=== PATIENT | female | born 1985 | race Caucasian/White ===

== ENCOUNTER 2017-09-29 08:29 | Emergency (ER) | payer MEDICAID ==
[~2017-09-29] VITALS: Ht 167.6 cm; Wt 52.6 kg
[~2017-09-29 08:29] MED LIST: ANAPROX DS550 MG PO; AVPAK AZITHROM250 M1 PO; CLEOCIN HCL150 MG PO; CYCLOBENZAPRINE10 MG PO; Motrin,Rufen800 MG PO; ZOFRAN ODT4 MG SL; [UNRECOGNIZED DRUG - OTHER] PO
[2017-09-29] MEDS ORDERED: GOOD SENSE ALLE10 M2 PO (08:39)
[2017-09-29] MEDS ORDERED: PROAIR HFA8.5 GM INH (08:39)
[2017-09-29] MEDS ORDERED: AVPAK AZITHROM250 M1 PO (08:39)
[2017-09-29 08:49] LABS: BASO % 0.5 % (0.0-1.0); EOS % 0.6 % (1.0-4.0); HEMATOCRIT 45.6 % (37.0-47.0); HEMOGLOBIN 15.6 g/dl (12.0-16.0); LYMPH # 0.9 10*3/uL (1.3-4.4); LYMPH % 14.6 % (27.0-41.0); MEAN CELL VOLUME 92.1 fl (81.0-99.0); MEAN CORPUSCULAR HGB 31.5 pg (27.0-31.0); MEAN CORPUSCULAR HGB CONC 34.2 g/dl (33.0-37.0); MEAN PLATELET VOLUME 10.3 fl (9.6-12.3); MONO # 0.5 10*3/uL (0.1-1.0); MONO % 8.6 % (3.0-9.0); NEUT # 4.7 10*3/uL (2.3-7.9); NEUT % 75.4 % (47.0-73.0); PLATELET COUNT AUTOMATED 160 10*3/uL (130-400); RED BLOOD COUNT 4.95 10*6/uL (4.10-5.10); RED CELL DISTRI WIDTH 12.9 % (0-14.5); WHITE BLOOD COUNT 6.3 10*3/uL (4.8-10.8)
[2017-09-29 09:03] LABS: ALBUMIN 4.2 gm/dl (3.1-4.5); ALKALINE PHOSPHATASE 101 U/L (45-117); BUN 12 mg/dl (7-24); CHLORIDE 103 mmol/L (98-107); CREATININE 0.74 mg/dL (0.55-1.02); LIPASE 139 U/L (73-393); POTASSIUM 3.3 mmol/L (3.5-5.1); SGOT/AST 30 IU/L (3-35); SGPT/ALT 30 U/L (12-78); SODIUM 138 mmol/L (136-145); TOTAL PROTEIN 7.7 gm/dL (6.4-8.2)
[2017-09-29 09:15] LABS: BILIRUBIN 1+ (NEGATIVE); BLOOD TRACE-INTACT (NEGATIVE); CLARITY SL CLOUDY (CLEAR); COLOR YELLOW (YELLOW); GLUCOSE NEGATIVE (NEGATIVE); KETONE 1+ (NEGATIVE); LEUKO ESTERASE NEGATIVE (NEGATIVE); NITRITE NEGATIVE (NEGATIVE); PH 6.5 (5.0-9.0); UROBILINOGEN 0.2 E.U./dl (0.2-1.0)
[2017-09-29 09:25] LABS: BACTERIA TRACE; EPITHELIAL CELLS 21-30
[2017-09-29] MEDS ORDERED: ZOFRAN ODT4 MG SL (09:57)
[2017-09-30] MEDS ORDERED: ZOFRAN ODT4 MG SL (15:28)
== END 2017-09-29 10:03 | disposition home or self-care (01) ==
LOC: ED 08:29
PROVIDERS: Emergency Medicine
DX: K52.9 Noninfective gastroenteritis and colitis, unspecified (principal); Z98.890 Other specified postprocedural states; Z79.899 Other long term (current) drug therapy; Z91.030 Bee allergy status

== ENCOUNTER 2017-10-05 07:30 | Emergency (ER) | payer MEDICAID ==
[~2017-10-05] VITALS: Ht 167.6 cm; Wt 52.6 kg
[~2017-10-05 07:30] MED LIST changes: +GOOD SENSE ALLE10 M2 PO; +PROAIR HFA8.5 GM INH
[2017-10-05 08:03] LABS: BASO % 0.3 % (0.0-1.0); EOS # 0.2 10*3/uL (0.0-0.4); EOS % 2.3 % (1.0-4.0); HEMATOCRIT 42.4 % (37.0-47.0); HEMOGLOBIN 14.8 g/dl (12.0-16.0); LYMPH # 1.9 10*3/uL (1.3-4.4); LYMPH % 29.2 % (27.0-41.0); MEAN CELL VOLUME 88.1 fl (81.0-99.0); MEAN CORPUSCULAR HGB 30.8 pg (27.0-31.0); MEAN CORPUSCULAR HGB CONC 34.9 g/dl (33.0-37.0); MEAN PLATELET VOLUME 10.3 fl (9.6-12.3); MONO # 0.7 10*3/uL (0.1-1.0); MONO % 10.6 % (3.0-9.0); NEUT # 3.8 10*3/uL (2.3-7.9); NEUT % 57.4 % (47.0-73.0); PLATELET COUNT AUTOMATED 183 10*3/uL (130-400); RED BLOOD COUNT 4.81 10*6/uL (4.10-5.10); WHITE BLOOD COUNT 6.6 10*3/uL (4.8-10.8)
[2017-10-05 08:14] LABS: ALBUMIN 3.7 gm/dl (3.1-4.5); ALKALINE PHOSPHATASE 71 U/L (45-117); BUN 4 mg/dl (7-24); CHLORIDE 109 mmol/L (98-107); SGOT/AST 19 IU/L (3-35); SGPT/ALT 57 U/L (12-78); SODIUM 140 mmol/L (136-145); TOTAL PROTEIN 7.1 gm/dL (6.4-8.2)
[2017-10-05 08:16] LABS: POTASSIUM 2.4 mmol/L (3.5-5.1)
[2017-10-05 08:18] LABS: BETA-HCG, QUANT < 1.0 mIU/mL (1-3)
[2017-10-05 09:06] LABS: BILIRUBIN NEGATIVE (NEGATIVE); BLOOD 3+ (NEGATIVE); CLARITY CLEAR (CLEAR); COLOR YELLOW (YELLOW); GLUCOSE NEGATIVE (NEGATIVE); KETONE NEGATIVE (NEGATIVE); LEUKO ESTERASE NEGATIVE (NEGATIVE); NITRITE NEGATIVE (NEGATIVE); SPECIFIC GRAVITY >= 1.030 (1.005-1.030); UROBILINOGEN 0.2 E.U./dl (0.2-1.0)
[2017-10-05 09:18] LABS: BACTERIA TRACE; EPITHELIAL CELLS 0-2
[2017-10-05] MEDS ORDERED: ZOFRAN ODT4 MG SL (10:28)
== END 2017-10-05 10:27 | disposition left against medical advice (07) ==
LOC: ED 07:30
PROVIDERS: Emergency Medicine
DX: K81.9 Cholecystitis, unspecified (principal); R10.11 Right upper quadrant pain; Z98.890 Other specified postprocedural states; Z91.030 Bee allergy status; Z79.899 Other long term (current) drug therapy

== ENCOUNTER 2017-10-06 20:35 | Inpatient (IN) | payer MEDICAID ==
[~2017-10-06] VITALS: Ht 167.6 cm; Wt 49.9 kg
[2017-10-06 20:39] VITALS: BP 105/61
[2017-10-06 21:20] LABS: BILIRUBIN NEGATIVE (NEGATIVE); BLOOD TRACE-LYSED (NEGATIVE); CLARITY CLEAR (CLEAR); COLOR YELLOW (YELLOW); GLUCOSE NEGATIVE (NEGATIVE); KETONE NEGATIVE (NEGATIVE); LEUKO ESTERASE NEGATIVE (NEGATIVE); NITRITE NEGATIVE (NEGATIVE); PH 5.5 (5.0-9.0); SPECIFIC GRAVITY >= 1.030 (1.005-1.030)
[2017-10-06 21:29] LABS: HEMATOCRIT 37.4 % (37.0-47.0); HEMOGLOBIN 13.1 g/dl (12.0-16.0); MEAN CELL VOLUME 88.8 fl (81.0-99.0); MEAN CORPUSCULAR HGB 31.1 pg (27.0-31.0); MEAN PLATELET VOLUME 10.2 fl (9.6-12.3); PLATELET COUNT AUTOMATED 186 10*3/uL (130-400); RED BLOOD COUNT 4.21 10*6/uL (4.10-5.10); RED CELL DISTRI WIDTH 13.2 % (0-14.5); WHITE BLOOD COUNT 6.4 10*3/uL (4.8-10.8)
[2017-10-06 21:37] LABS: CALCIUM OXALATE CRYSTALS 1+; EPITHELIAL CELLS 20-25
[2017-10-06 21:38] LABS: WBC 0-2 wbc/hpf (0-5)
[2017-10-06 21:41] LABS: ACT PARTIAL THROMBO TIME 22.5 SECONDS (20.8-31.5)
[2017-10-06 21:46] LABS: ALBUMIN 3.3 gm/dl (3.1-4.5); ALKALINE PHOSPHATASE 69 U/L (45-117); BUN 9 mg/dl (7-24); CHLORIDE 106 mmol/L (98-107); CREATININE 0.56 mg/dL (0.55-1.02); LIPASE 508 U/L (73-393); POTASSIUM 2.8 mmol/L (3.5-5.1); SGOT/AST 21 IU/L (3-35); SGPT/ALT 41 U/L (12-78); SODIUM 143 mmol/L (136-145); TOTAL PROTEIN 6.2 gm/dL (6.4-8.2)
[2017-10-06 22:03] LABS: ATYPICAL LYMPHS 1 % (0-0); BASOPHILS 1 % (0-1); TOTAL CELLS COUNTED 100 #CELLS
[2017-10-06 22:05] LABS: PLATELET SUFFICIENCY NORMAL (NORMAL); POLYCHROMASIA SLIGHT
[2017-10-06 22:48] VITALS: BP 112/63
[2017-10-07 08:00] VITALS: BP 102/66
== END 2017-10-07 11:58 | disposition home or self-care (01) | DRG 444 ==
LOC: ED 20:35 → EDHOLD 22:21 → ED 22:21 → EDHOLD 22:23 → 5E 22:47
PROVIDERS: Physician Assistant
DX: K80.00 Calculus of gallbladder with acute cholecystitis without obstruction (principal); K85.10 Biliary acute pancreatitis without necrosis or infection; E44.1 Mild protein-calorie malnutrition; Z68.1 Body mass index [BMI] 19.9 or less, adult; R74.8 Abnormal levels of other serum enzymes; E87.6 Hypokalemia; R00.0 Tachycardia, unspecified; J30.2 Other seasonal allergic rhinitis; K21.9 Gastro-esophageal reflux disease without esophagitis; Z91.030 Bee allergy status; Z83.6 Family history of other diseases of the respiratory system; Z71.6 Tobacco abuse counseling; Z79.899 Other long term (current) drug therapy; Z72.0 Tobacco use

== ENCOUNTER 2018-04-14 02:13 | Emergency (ER) | payer MEDICAID ==
[~2018-04-14] VITALS: Ht 167.6 cm; Wt 56.7 kg
[2018-04-14] MEDS ORDERED: IBU800 MG PO (02:27)
[2018-04-14] MEDS ORDERED: AUGMENTIN 875875 MG PO (02:27)
== END 2018-04-14 02:58 | disposition home or self-care (01) ==
LOC: ED 02:13
DX: S61.451A Open bite of right hand, initial encounter (principal); S61.452A Open bite of left hand, initial encounter; K21.9 Gastro-esophageal reflux disease without esophagitis; F17.200 Nicotine dependence, unspecified, uncomplicated; Z91.030 Bee allergy status; Z79.899 Other long term (current) drug therapy; W54.0XXA Bitten by dog, initial encounter; Y93.89 Activity, other specified; Y92.098 Other place in other non-institutional residence as the place of occurrence of the external cause; Y99.8 Other external cause status

== ENCOUNTER 2018-12-10 14:10 | Emergency (ER) | payer MEDICAID ==
[~2018-12-10] VITALS: Ht 167.6 cm; Wt 52.2 kg
[~2018-12-10 14:10] MED LIST changes: +AUGMENTIN 875875 MG PO; +IBU800 MG PO
== END 2018-12-10 15:59 | disposition home or self-care (01) ==
LOC: ED 14:10
DX: S90.121A Contusion of right lesser toe(s) without damage to nail, initial encounter (principal); Z91.030 Bee allergy status; Z79.899 Other long term (current) drug therapy; W55.19XA Other contact with horse, initial encounter; Y93.89 Activity, other specified; Y92.89 Other specified places as the place of occurrence of the external cause; Y99.8 Other external cause status

== ENCOUNTER 2019-01-24 21:15 | Emergency (ER) | payer MEDICAID ==
[~2019-01-24] VITALS: Ht 165.1 cm; Wt 49.9 kg
== END 2019-01-24 22:17 | disposition home or self-care (01) ==
LOC: ED 21:15
DX: T65.891A Toxic effect of other specified substances, accidental (unintentional), initial encounter (principal); H10.212 Acute toxic conjunctivitis, left eye; Z98.890 Other specified postprocedural states; Z91.030 Bee allergy status; Y92.89 Other specified places as the place of occurrence of the external cause

== ENCOUNTER 2021-05-05 13:11 | Emergency (ER) | payer MEDICAID | END 2021-05-05 14:17 | disposition left against medical advice (07) | LOC: ED 13:11 | DX: Z53.21 Procedure and treatment not carried out due to patient leaving prior to being seen by health care provider (principal) ==